=== PATIENT | female | born 1985 | race Caucasian/White ===

== ENCOUNTER 2016-04-02 22:24 | Emergency (ER) | payer MEDICAID ==
[~2016-04-02] VITALS: Ht 160 cm; Wt 62.0 kg
[~2016-04-02 22:24] MED LIST: ACET500C5 PO; BISM262O23 PO; CIPR500T4 PO; DOCU-144 PO; IBUP400T22 PO; NITR-58 PO; ONDA4TAB35 PO; ONDA8TAB14 PO; POLY17PO6 PO; TRAM50TA2 PO
[2016-04-02 22:27] VITALS: Ht 160 cm; Wt 62.0 kg
[2016-04-02] MEDS ORDERED: DIPH177. TP (23:56)
--- NOTE | 2016-04-03 00:09 | ERD ---
ER Documentation Chief Complaint Date/Time DATE: 04/03/16 TIME: 00:03 Chief Complaint headache on and off for past 2 weeks HPI 22-year-old female is complaining of itchy lesion on her anterior chest, and right upper leg. Patient stated that the chest lesion has been there for 1 week , and she noticed a lesion on her leg this evening. In addition, she also complaining of headache on and off of her past 2 weeks. Headache usually lasts about 1-2 hours, relieved with Tylenol. Denies headache at this time. Denies fever or chills. Denies blurry vision. Denies photophobia or phonophobia. Denies exposure to new foods or new cleaning products. Denies shortness of breath. ROS All systems reviewed and are negative except as per history of present illness. Medications Home Meds Active Scripts Diphenhydramin/Benzethon/Zinc (Calagel Gel) 177.44 Ml Gel..ml., 1 APPLIC TP Q2H Y for ITCHING, #1 BOT Prov:TERESSA RUIZ RN TESTING 04/02/16 Ibuprofen* (Motrin*) 400 Mg Tab, 400 MG PO Q6H Y for PAIN AND OR ELEVATED TEMP, #30 TAB Prov:ERIK FINN NP 01/18/16 Bismuth Subsalicylate* (Pepto-Bismol*) 262 Mg/15 Ml Oral.susp, 15 ML PO Q3H Y for DIARRHEA for 4 Days, ML Prov:ALVIN MENDOZA MD 10/27/15 Acetaminophen* (Tylophen*) 500 Mg Capsule, 1 CAP PO Q6H Y for PAIN AND OR ELEVATED TEMP, #14 CAP Prov:ALVIN MENDOZA MD 10/27/15 Ondansetron (Ondansetron Odt) 8 Mg Tab.rapdis, 8 MG PO Q6H Y for NAUSEA AND/OR VOMITING, #8 TAB Prov:ALVIN MENDOZA MD 10/27/15 Tramadol HCl (Tramadol HCl) 50 Mg Tablet, 50 MG PO Q4 Y for PAIN, #14 TAB Prov:ALVA GOLD PA-C 07/22/15 Ciprofloxacin Hcl* (Ciprofloxacin Hcl*) 500 Mg Tablet, 500 MG PO BID for 7 Days , TAB Prov:ERIK FINN NP 04/12/15 Docusate Sodium* (Colace*) 100 Mg Capsule, 100 MG PO TID, #30 CAP Prov:ERIK FINN BATSHEVA Holbrook RN TESTING 04/12/15 Polyethylene Glycol* (Miralax*) 17 Gm Powd.pack, 17 GM PO DAILY, #7 Prov:ERIK FINN BATSHEVA Holbrook NP 04/12/15 Ondansetron Hcl* (Zofran* ODT) 4 mg -ODT Tab.disper, 4 MG PO Q8 Y for NAUSEA AND /OR VOMITING, #30 TAB Prov:ERIK FINN BATSHEVA Holbrook RN TESTING 04/12/15 Nitrofurantoin Monohyd Macrocr* (Macrobid*) 100 Mg Capsr, 100 MG PO BID for 7 Days, CAP Prov:VIVEK DAVIS PA-C 02/03/15 Reported Medications [none] Unknown Strength No Conflict Check 04/12/15 [None] No Conflict Check 10/22/09 Allergies Allergies: Coded Allergies: No Known Drug Allergy (Verified Allergy, Mild, 07/22/15) PMhx/Soc Medical and Surgical Hx: pt denies Medical Hx History of Surgery: No Anesthesia Reaction: No Hx Neurological Disorder: No Hx Respiratory Disorders: No Hx Cardiac Disorders: No Hx Psychiatric Problems: No Hx Miscellaneous Medical Probl: No (DENIES MED AND SURG HX.) Hx Alcohol Use: No Hx Substance Use: No Hx Tobacco Use: No Physical Exam Vitals Vital Signs Date Time Temp Pulse Resp B/P Pulse Ox O2 Delivery O2 Flow Rate FiO2 04/02/16 22:27 98.5 100 18 165/100 100 Physical Exam General impression: Well-developed, well-nourished. Alert, oriented, in no acute distress Head: Normocephalic, atraumatic. Eyes: PERRL, EOM normal. Conjunctiva not injected. ENT: Nasal mucosa, oral mucosa and oropharynx are normal. Neck: Supple, nontender. Upper trapezius muscles tightness noted. No nuchal rigidity. Respiration: Normal respiratory effort. Lungs clear to auscultate bilaterally. No wheezes, rales or rhonchi. Cardiovascular: Regular rate and rhythm. No murmurs or extra heart sounds. Back: Normal to inspection. No midline spine tenderness. No CVA tenderness. Neuro: Mental status normal, speech normal. SIGNS AND DISPLAYS SALES REPRESENTATIVE II-XII intact. Normal sensation and strength in all 4 extremities. No focal weakness noted. Skin: Normal turgor. Except bites noted on patient's chest and left upper thigh. Psych: Normal mood and affect. Procedures/MDM Well-appearing 30-year-old female presented to ED with insect bites. Low suspicion for allergic reaction or anaphylaxis. Patient also complaining of on and off headache for last 2 weeks. Likely cause of headache is tension headache. Low suspicion for intracranial hemorrhage or mass. Low suspicion for stroke or cerebral aneurysm. Patient appears well, stable for discharge and outpatient management. Medical decision making shared with patient and family. Education provided to patient and family. Patient and family expressed understanding of the plan. Medications on discharge: Calagel. Follow-up: Primary care provider in 2-3 days or return to ED if worse. Departure Diagnosis: Primary Impression: Insect bite Encounter type: initial encounter Qualified Code: W57.XXXA - Insect bite, initial encounter Additional Impression: Headache Headache type: tension-type Headache chronicity pattern: acute headache Intractability: not intractable Qualified Code: G44.209 - Acute non intractable tension-type headache Condition: Good Patient Instructions: Self-Care for Headaches, Insect Bite Referrals: [facility] YOU HAVE RECEIVED A MEDICAL SCREENING EXAM AND THE RESULTS INDICATE THAT YOU DO NOT HAVE A CONDITION THAT REQUIRES URGENT TREATMENT IN THE EMERGENCY DEPARTMENT. FURTHER EVALUATION AND TREATMENT OF YOUR CONDITION CAN WAIT UNTIL YOU ARE SEEN IN YOUR DOCTORS OFFICE WITHIN THE NEXT 1-2 DAYS. IT IS YOUR RESPONSIBILITY TO MAKE AN APPOINTMENT FOR FOLOW-UP CARE. IF YOU HAVE A PRIMARY DOCTOR --you should call your primary doctor and schedule an appointment IF YOU DO NOT HAVE A PRIMARY DOCTOR YOU CAN CALL OUR PHYSICIAN REFERRAL HOTLINE AT IF YOU CAN NOT AFFORD TO SEE A PHYSICIAN YOU CAN CHOSE FROM THE FOLLOWING [facility] [address] [facility] [address] [facility] [facility] [address] [facility] [address] [facility] [address] [facility]. [facility] [address] Additional Instructions: Call your primary care doctor TOMORROW for an appointment during the next 2-3 days.See the doctor sooner or return here if your condition worsens before your appointment time. TERESSA RUIZ NP Apr 03, 2016 00:09
== END 2016-04-03 00:19 | disposition home or self-care (01) ==
LOC: FTE 22:24
DX: S20.369A Insect bite (nonvenomous) of unspecified front wall of thorax, initial encounter (principal); S70.362A Insect bite (nonvenomous), left thigh, initial encounter; G44.209 Tension-type headache, unspecified, not intractable; W57.XXXA Bitten or stung by nonvenomous insect and other nonvenomous arthropods, initial encounter; Y92.9 Unspecified place or not applicable
CPT/HCPCS: 99283

== ENCOUNTER 2016-08-16 23:37 | Emergency (ER) | payer MEDICAID ==
[~2016-08-16] VITALS: Ht 162.6 cm; Wt 60.5 kg
[~2016-08-16 23:37] MED LIST changes: +DIPH177. TP
[2016-08-16 23:48] VITALS: Ht 162.6 cm; Wt 60.5 kg
[2016-08-17] MEDS ORDERED: ONDANSETRON 4 MG INJ IV STA (00:12)
[2016-08-17] MEDS ORDERED: SOD CHLORIDE 0.9% 1,000 ML IV ONE (00:30)
[2016-08-17] MEDS ORDERED: FAMOTIDINE 20 MG INJ IV ONE (00:30)
[2016-08-17 00:45] LABS: URINE BLOOD (Dip) POC Trace-intact (NEGATIVE)
--- NOTE | 2016-08-17 01:42 | ERD ---
ER Documentation Chief Complaint Date/Time DATE: 08/17/16 TIME: 01:30 Chief Complaint diarrhea x 1 week, vomiting HPI This pleasant 31-year-old female presents to emergency department today with complaint of nausea, vomiting, diarrhea 7 days. Patient reports low abdominal cramping, denies fever or chills. Patient reports possibility of eating contaminated food . Reports has similar symptoms, denies any recent travel, denies blood in stool or vomit. Patient reports anorexia but is drinking water and Pedialyte. Patient reports last vomited episode yesterday but feels nauseated now.. Reports copious watery diarrhea with today has not been able to leave the bathroom for most of the day. Patient denies chest pain, shortness of breath, history of pancreatitis, last menstrual period was 7 days ago reported normal. Patient denies dysuria, or back pain., Denies chest pain, shortness of breath, dizziness, or palpitation ROS All systems reviewed and are negative except as per history of present illness. Medications Home Meds Active Scripts Ciprofloxacin Hcl* (Ciprofloxacin Hcl*) 500 Mg Tablet, 500 MG PO BID for 7 Days , TAB Prov:JAS CHAVEZ 08/17/16 Diphenhydramin/Benzethon/Zinc (Calagel Gel) 177.44 Ml Gel..ml., 1 APPLIC TP Q2H Y for ITCHING, #1 BOT Prov:TERESSA RUIZ SHAKER OUT 04/02/16 Ibuprofen* (Motrin*) 400 Mg Tab, 400 MG PO Q6H Y for PAIN AND OR ELEVATED TEMP, #30 TAB Prov:ERIK FINN NP 01/18/16 Bismuth Subsalicylate* (Pepto-Bismol*) 262 Mg/15 Ml Oral.susp, 15 ML PO Q3H Y for DIARRHEA for 4 Days, ML Prov:ALVIN MENDOZA MD 10/27/15 Acetaminophen* (Tylophen*) 500 Mg Capsule, 1 CAP PO Q6H Y for PAIN AND OR ELEVATED TEMP, #14 CAP Prov:ALVIN MENDOZA MD 10/27/15 Ondansetron (Ondansetron Odt) 8 Mg Tab.rapdis, 8 MG PO Q6H Y for NAUSEA AND/OR VOMITING, #8 TAB Prov:ALVIN MENDOZA MD 10/27/15 Tramadol HCl (Tramadol HCl) 50 Mg Tablet, 50 MG PO Q4 Y for PAIN, #14 TAB Prov:ALVA GOLD PA-C 07/22/15 Ciprofloxacin Hcl* (Ciprofloxacin Hcl*) 500 Mg Tablet, 500 MG PO BID for 7 Days , TAB Prov:ERIK FINN NP 04/12/15 Docusate Sodium* (Colace*) 100 Mg Capsule, 100 MG PO TID, #30 CAP Prov:ERIK FINN SHAKER OUT 04/12/15 Polyethylene Glycol* (Miralax*) 17 Gm Powd.pack, 17 GM PO DAILY, #7 Prov:ERIK FINN NP 04/12/15 Ondansetron Hcl* (Zofran* ODT) 4 mg -ODT Tab.disper, 4 MG PO Q8 Y for NAUSEA AND /OR VOMITING, #30 TAB Prov:ERIK FINN NP 04/12/15 Nitrofurantoin Monohyd Macrocr* (Macrobid*) 100 Mg Capsr, 100 MG PO BID for 7 Days, CAP Prov:VIVEK DAVIS PA-C 02/03/15 Reported Medications [none] Unknown Strength No Conflict Check 04/12/15 [None] No Conflict Check 10/22/09 Allergies Allergies: Coded Allergies: No Known Drug Allergy (Verified Allergy, Mild, 08/17/16) PMhx/Soc History of Surgery: No Anesthesia Reaction: No Hx Neurological Disorder: No Hx Respiratory Disorders: No Hx Cardiac Disorders: No Hx Psychiatric Problems: No Hx Miscellaneous Medical Probl: No (DENIES MED AND SURG HX.) Hx Alcohol Use: No Hx Substance Use: No Hx Tobacco Use: No Physical Exam Vitals Vital Signs Date Time Temp Pulse Resp B/P Pulse Ox O2 Delivery O2 Flow Rate FiO2 08/16/16 23:48 98.2 90 20 136/69 98 Vitals stable, triage notes reviewed Physical Exam Const: No acute distress, well-appearing Head: Atraumatic Eyes: Normal Conjunctiva, PERRLA, EOMI ENT: Normal External Ears, Nose and Mouth mucous membranes. Neck: Full range of motion..~ No meningismus. Resp: Chest rise and fall symmetrically, no respiratory distress Abd: Abdomen soft, generalized tenderness, no CVA tenderness, no rebound tenderness Skin: Back: Ext: Neur: Awake and alert Psych: Normal Mood and Affect Results 24 hrs Laboratory Tests Test 08/17/16 00:48 Bedside Urine pH (LAB) 7.0 Bedside Urine Protein (LAB) Negative Bedside Urine Glucose (UA) Negative Bedside Urine Ketones (LAB) Negative Bedside Urine Blood Trace-intact Bedside Urine Nitrite (LAB) Negative Bedside Urine Leukocyte Esterase (L 1+ Current Medications Medications (Trade) Dose Ordered Sig/Duc Route PRN Reason Start Time Stop Time Status Last Admin Dose Admin Sodium Chloride (NS) 1,000 ml @ 1,000 mls/hr Q1H ONCE IV 08/17/16 00:30 08/17/16 01:29 DC 08/17/16 00:39 Famotidine (Pepcid Iv) 20 mg ONCE ONCE IV 08/17/16 00:30 08/17/16 00:31 DC 08/17/16 00:39 Ondansetron HCl (Zofran Inj) 4 mg ONCE STAT IV 08/17/16 00:12 08/17/16 00:16 DC 08/17/16 00:39 Procedures/MDM This pleasant 31-year-old female presents to emergency department today with 1 week history of nausea, vomiting, diarrhea. Patient reports low abdominal pain , cramping, denies back pain. Patient denies any recent travel but reports possible contaminated food, reports has been sick with similar symptoms. Patient is afebrile, has taken [id number] Imodium and Pepto-Bismol with little relief of symptoms. Infectious diarrhea, cholecystitis, pancreatitis, appendicitis, unlikely. Patient treated with 1 L of normal saline, Zofran, and Pepcid with effective improvement of symptoms. Urinalysis positive for leukocytosis and microscopic hematuria, likely secondary to diarrhea. Patient will be treated with Cipro 500 mg 1 tab p.o. twice daily 7 days. Continue over -the-counter Imodium as directed. Return to emergency department for worsening of symptoms. Increase fluids, increase rest. I feel the patient is stable for discharge at this time with outpatient management by primary physician. I have discussed results, examination findings, the treatment plan with the patient and family present prior to discharge. Indications for emergent reevaluation, side effects of medication were also discussed. All questions were answered. Patient verbalizes understanding and agrees with plan of care. Departure Diagnosis: Primary Impression: Diarrhea Diarrhea type: unspecified type Qualified Code: R19.7 - Diarrhea, unspecified type Additional Impression: UTI (urinary tract infection) Urinary tract infection type: site unspecified Hematuria presence: with hematuria Qualified Code: N39.0 - Urinary tract infection with hematuria, site unspecified Patient Instructions: Understanding Urinary Tract Infections (UTIs) [facility] Additional Instructions: Thank you for for coming to [facility] for your care today. Please ask your nurse or provider if you have questions about your care today and do not leave until all your questions have been answered. Please use any medications given as directed and follow-up with your doctor (or the doctor you were referred to) in the next 2-3 days. If you do not have a primary care doctor [place] [facility] [place] You may also use motrin and tylenol as needed for fever and/or pain unless instructed otherwise by your provider or nurse. Indications for more urgent follow-up have been discussed, but you may return to the Emergency Department at ANY time for any worrisome or worsening symptoms. If you have abdominal pain, please know that no test or exam you received is perfect and you should follow up within 8 hours for continued pain. If you had any imaging studies today, such as an X-Ray or CT Scan, these studies will be reviewed later by a radiologist. You will be called if there are important findings that were not identified today, so make sure the contact information you provided at registration is correct. If you received any narcotic pain control medicine today, such as Vicodin, Morphine or Dilaudid, your coordination and judgment may be affected for a number of hours. Please do not drive or operate heavy machinery, and you may want someone to assist you at home. If you were given a prescription for narcotic medication, be aware that it is very addictive- use sparingly and only if necessary. AJS CHAVEZ Aug 17, 2016 01:41
[2016-08-17] MEDS ORDERED: CIPR500T4 PO (01:43)
[2016-08-17 02:03] VITALS: BP 117/71; PULSE 78; RESP 18
== END 2016-08-17 02:04 | disposition home or self-care (01) ==
LOC: FTE 23:37
DX: R19.7 Diarrhea, unspecified (principal); N39.0 Urinary tract infection, site not specified; R11.2 Nausea with vomiting, unspecified
CPT/HCPCS: 81003; J2405; J7030; Z7610; 96361; 96374; 96375

== ENCOUNTER 2017-08-25 17:40 | Emergency (ER) | END 2017-08-25 21:15 | disposition home or self-care (01) ==

== ENCOUNTER 2018-05-02 07:35 | Inpatient (IN) | payer MEDICAID ==
[~2018-05-02] VITALS: Ht 160 cm; Wt 86.4 kg
[~2018-05-02 07:35] MED LIST changes: +IBUP-1561 PO; -IBUP400T22 PO
[2018-05-02 07:49] VITALS: BP 124/85; PULSE 115; RESP 17; Ht 160 cm; Wt 86.4 kg
[2018-05-02] MEDS: LACTATED RINGER'S 1,000 ML IV SCH ×3 (08:22→23:15)
[2018-05-02] MEDS ORDERED: LIDOCAINE 1% (MPF) 30 ML INJ INJ PRN (08:30)
[2018-05-02] MEDS ORDERED: CARBOPROST 250 MCG INJ IM PRN (08:30)
[2018-05-02] MEDS ORDERED: OXYTOCIN 30 UNITS/LR 500 ML IV SCH ×2 (08:30)
[2018-05-02] MEDS ORDERED: MISOPROSTOL 200 MCG TAB PR PRN (08:30)
[2018-05-02] MEDS ORDERED: METHYLERGONOVINE 0.2 MG INJ IM PRN (08:30)
[2018-05-02] MEDS ORDERED: OXYTOCIN 30 UNITS/LR 500 ML IV PRN (08:30)
[2018-05-02] MEDS ORDERED: BUTORPHANOL 2 MG INJ IV PRN (08:30)
[2018-05-02] MEDS: MISOPROSTOL 50 MCG CAPSULE PO SCH ×3 (10:00→21:56)
--- NOTE | 2018-05-02 13:11 | HP ---
Date/Time of Note Date/Time of Note DATE: 05/02/18 TIME: 13:10 OB - History Hx of Present : 1 Para: 0 Care: Good Care Ultrasounds: Normal mid trimester US Obstetrical Complications: None Medical Complications: None Past Family/Social History * Past Medical, Surgical, Family and Obstetric Histories reviewed from chart. OB Admission Exam Vital Signs Vital Signs Vital Signs Date Temp Pulse Resp B/P (MAP) Pulse Ox O2 O2 Flow FiO2 Time Delivery Rate 05/02/18 97.7 115 17 124/85 07:49 (98) Physical Exam HEENT: WNL Heart: Rhythm Normal Lungs: Clear, Equal Abdomen: WNL Extremities: Normal Reflexes: Normal Cervical Dilatation: Fingertip Effacement: 25% Station: -2 Membranes: Intact Heart Rate: 130's Accelerations: Accelerations Present Decelerations: No Decelerations Varibility: Moderate Contractions on Admission: None Last 72 hours Lab Results CBC & BMP 05/02/18 08:22 OB Assessment/Plan Reason for admission: active labor, induction of labor Plan: Induction DUANE JANG MD May 02, 2018 13:11
[2018-05-03] MEDS: LACTATED RINGER'S 1,000 ML IV SCH ×3 (00:51→19:00)
--- NOTE | 2018-05-03 01:17 | PREAC ---
Date/Time of Note Date/Time of Note DATE: 05/03/18 TIME: : Anesthesia Eval and Record Evaluation Time Pre-Procedure Interview DATE: 05/03/18 TIME: :16 Age 32 Sex female NPO: 8 hrs Preoperative diagnosis labor pain Planned procedure labor epidural Past Medical History Past Medical History: None Surgery & Anesthesia Issues No known issue Meds Anticoagulation: No Beta Jose within 24 hr: No Reason Beta Jose not given: Pt. not on B-Jose Active Scripts Ciprofloxacin Hcl* (Ciprofloxacin Hcl*) 500 Mg Tablet, 500 MG PO BID for 7 Days, TAB Prov:SCOTTJAS 08/17/16 Diphenhydramin/Benzethon/Zinc (Calagel Gel) 177.44 Ml Gel..ml., 1 APPLIC TP Q2H PRN for ITCHING, #1 BOT Prov:TERESSA RUIZ [place] PILOT 04/02/16 Ibuprofen* (Motrin*) 400 Mg Tab, 400 MG PO Q6H PRN for PAIN AND OR ELEVATED TEMP, #30 TAB Prov:ERIK FINN NP 01/18/16 Bismuth Subsalicylate* (Pepto-Bismol*) 262 Mg/15 Ml Oral.susp, 15 ML PO Q3H PRN for DIARRHEA for 4 Days, ML Prov:ALVIN MENDOZA MD 10/27/15 Acetaminophen* (Tylophen*) 500 Mg Capsule, 1 CAP PO Q6H PRN for PAIN AND OR ELEVATED TEMP, #14 CAP Prov:ALVIN MENDOZA MD 10/27/15 Ondansetron (Ondansetron Odt) 8 Mg Tab.rapdis, 8 MG PO Q6H PRN for NAUSEA AND/OR VOMITING, #8 TAB Prov:ALVIN MENDOZA MD 10/27/15 Tramadol HCl (Tramadol HCl) 50 Mg Tablet, 50 MG PO Q4 PRN for PAIN, #14 TAB Prov:ALVA GOLD PA-C 07/22/15 Ciprofloxacin Hcl* (Ciprofloxacin Hcl*) 500 Mg Tablet, 500 MG PO BID for 7 Days, TAB Prov:ERIK FINN NP 04/12/15 Docusate Sodium* (Colace*) 100 Mg Capsule, 100 MG PO TID, #30 CAP Prov:ERIK FINN NP 04/12/15 Polyethylene Glycol* (Miralax*) 17 Gm Powd.pack, 17 GM PO DAILY, #7 Prov:ERIK FINN NP 04/12/15 Ondansetron Hcl* (Zofran* ODT) 4 mg -ODT Tab.disper, 4 MG PO Q8 PRN for NAUSEA AND/OR VOMITING, #30 TAB Prov:ERIK FINN NP 04/12/15 Nitrofurantoin Monohyd Macrocr* (Macrobid*) 100 Mg Capsr, 100 MG PO BID for 7 Days, CAP Prov:VIVEK DAVIS PA-C 02/03/15 Reported Medications [none] Unknown Strength No Conflict Check 04/12/15 [None] No Conflict Check 10/22/09 Current Medications Lactated Ringer's 1,000 ml @ 125 mls/hr Q8H IV Last administered on 05/03/18at 00:51; Admin Dose 125 MLS/HR; Start 05/02/18 at 08:04 Butorphanol Tartrate (Stadol) 2 mg Q2H PRN IV .PAIN; Start 05/02/18 at 08:30 Lidocaine (Xylocaine 1% (Mpf)) 30 ml ONCE PRN INJ .EPISIOTOMY; Start 05/02/18 at 08:30 Oxytocin/Lactated Ringer's 500 ml @ 500 mls/hr ONCE POST IV ; Start 05/02/18 at 08:30 Oxytocin/Lactated Ringer's 500 ml @ 125 mls/hr POST IV ; Start 05/02/18 at 08:30 Oxytocin/Lactated Ringer's 500 ml @ 0 mls/hr ONCE PRN IV .VAGINAL BLEEDING; Start 05/02/18 at 08:30 Methylergonovine Maleate (Methergine) 0.2 mg ONCE PRN IM .VAGINAL BLEEDING; Start 05/02/18 at 08:30 Carboprost Tromethamine (Hemabate) 250 mcg ONCE PRN IM .VAGINAL BLEEDING; Start 05/02/18 at 08:30 Misoprostol (Cytotec) 1,000 mcg ONCE PRN AR .VAGINAL BLEEDING; Start 05/02/18 at 08:30 Misoprostol (Cytotec 50 Mcg Capsule) 50 mcg Q4 PO Last administered on 05/02/18at 21:56; Admin Dose 50 MCG; Start 05/02/18 at 10:00 Meds reviewed: Yes Allergies Coded Allergies: No Known Drug Allergy (Verified Allergy, Mild, 08/17/16) Allergies Reviewed: Yes Labs/Studies Labs Reviewed: Reviewed by anesthesiologist Result Diagram: 05/02/1822 Laboratory Tests 05/02/18 08:22 Blood Bank Test 05/02/18 08:22 Antibody Screen NEGATIVE Blood Type B POSITIVE Rh Immune Globulin Candidate NO test: Positive Pre-procedure Exam Last vitals Vital Signs Date Temp Pulse Resp B/P (MAP) Pulse Ox O2 O2 Flow FiO2 Time Delivery Rate 05/02/18 97.7 115 17 124/85 07:49 (98) Airway: Adequate mouth opening, Adequate thyromental dist Mallampati: Mallampati III Teeth: Normal Lung: Normal Heart: Normal ASA Physical Status ASA physical status: 2 Emergency: None Planned Anesthetic Neuraxial: Epidural Planned Pain Management Epidural, Parenteral pain med Pre-operative Attestations Prior to commencing anesthesia and surgery, the patient was re-evaluated, there was verification of: *The patient's identity *The results of appropriate recent lab work and preoperative vital signs *The above evaluation not changing prior to induction *Anesthetic plan, risk benefits, alternative and complications discussed with patient/family; questions answered; patient/family understands, accepts and wishes to proceed. MARCO A MORRELL MD May 03, 2018 01:17
[2018-05-03] MEDS ORDERED: KETOROLAC 30 MG INJ IV PRN (01:30)
[2018-05-03] MEDS ORDERED: ZOLPIDEM 5 MG TAB PO PRN ×2 (01:30→08:30)
[2018-05-03] MEDS ORDERED: FENTAnyl 2MCG/ML-ROPIV 0.2% 100 ML BAG EPI SCH (01:30)
[2018-05-03] MEDS ORDERED: ONDANSETRON 4 MG INJ IV PRN (01:30)
[2018-05-03] MEDS ORDERED: DIPHENHYDRAMINE 50 MG INJ IV PRN (01:30)
[2018-05-03] MEDS ORDERED: NALOXONE (0.4 MG/ML) INJ IV PRN (01:30)
[2018-05-03] MEDS ORDERED: HYDROmorphONE 0.5 MG/0.5 ML SYG IV PRN ×2 (01:30)
--- NOTE | 2018-05-03 01:56 | PAC ---
Date/Time of Note Date/Time of Note DATE: 05/03/18 TIME: 01:55 Post-Anesthesia Notes Post-Anesthesia Note Last documented vital signs Vital Signs Date Temp Pulse Resp B/P (MAP) Pulse Ox O2 O2 Flow FiO2 Time Delivery Rate 05/02/18 97.7 115 17 124/85 07:49 (98) Activity: WNL Respiratory function: WNL Cardiovascular function: WNL Mental status: Baseline Pain reasonably controlled: Yes Hydration appropriate: Yes Nausea/Vomiting absent: Yes MARCO A MORRELL MD May 03, 2018 01:56
--- NOTE | 2018-05-03 06:32 | LDN ---
Date/Time of Note Date/Time of Note DATE: 05/03/18 TIME: 05:56 Delivery Summary of normal female with shoulder cord Weeks of Gestation 40w2d Placenta Delivered: Spontaneously Meconium: Thick Episiotomy: No Perineal laceration: 1 Laceration repair: 0000ch gut Rt periurethral also used 0000ch gut Anesthesia type: Epidural Estimated blood loss: 150 Sponge & Needle done & correct: Yes All needle counts correct: Yes Any foreign bodies felt in the: No Infant Delivery Information Sex Infant Sex: female Apgars 1 Minute: 7 5 Minute: 8 Suctioning Nose & mouth suctioned at valentin: Yes Delee suction performed: Yes Umbilical Cord Umbilical cord with: 3 Vessels Cord Blood was obtained: Yes Mother & Baby Disposition Disposition Mom & Baby to Maternity; Good: No Mom transferred to: Other Baby to NICU: Yes DINESH CARPENTER MD May 03, 2018 06:09
[2018-05-03] MEDS ORDERED: OXYTOCIN 30 UNITS/LR 500 ML IV PRN (08:30)
[2018-05-03] MEDS ORDERED: BENZOCAINE 20% 56 ML SPRAY TOP PRN (08:30)
[2018-05-03] MEDS ORDERED: LANOLIN HPA 1 PKT TOP PRN (08:30)
[2018-05-03] MEDS ORDERED: MISOPROSTOL 200 MCG TAB PR PRN (08:30)
[2018-05-03] MEDS ORDERED: METHYLERGONOVINE 0.2 MG INJ IM PRN (08:30)
[2018-05-03] MEDS ORDERED: CARBOPROST 250 MCG INJ IM PRN (08:30)
[2018-05-03] MEDS ORDERED: WITCH HAZEL/GLYCERIN PAD PR PRN (08:30)
[2018-05-03] MEDS ORDERED: OXYCODONE/ASPIRIN (4.88/325) TAB PO PRN ×2 (08:30)
[2018-05-03 08:37] VITALS: BP 121/73; PULSE 99; RESP 18
[2018-05-03 09:45] VITALS: BP 122/79; PULSE 96; RESP 16
[2018-05-03] MEDS: SENNA/DOCUSATE NA (8.6MG/50MG) TAB PO SCH ×2 (10:24→20:57)
[2018-05-03] MEDS: IBUPROFEN 600 MG TAB PO SCH ×2 (12:00→18:00)
[2018-05-03 16:00] VITALS: BP 119/74; PULSE 92; RESP 17
[2018-05-03 19:40] VITALS: BP 121/82; RESP 20
[2018-05-04] VITALS: BP 113/76; PULSE 73; RESP 19
[2018-05-04] MEDS: LACTATED RINGER'S 1,000 ML IV SCH ×3 (02:30→18:30)
[2018-05-04 04:00] VITALS: BP 113/72; PULSE 87; RESP 18
[2018-05-04] MEDS: IBUPROFEN 600 MG TAB PO SCH ×4 (06:00→18:00)
[2018-05-04] MEDS: SENNA/DOCUSATE NA (8.6MG/50MG) TAB PO SCH ×2 (08:38→21:19)
--- NOTE | 2018-05-04 10:33 | DS ---
Date/Time of Note Date/Time of Note DATE: 05/04/18 TIME: 10:33 Discharge Summary Admission/Discharge Info Admit Date/Time May 02, 2018 at 07:35 Discharge Date/Time Patient Condition: Stable Hospital Course unremarkable Home Meds Active Scripts Ciprofloxacin Hcl* (Ciprofloxacin Hcl*) 500 Mg Tablet, 500 MG PO BID for 7 Days, TAB Prov:SCOTTJAS 08/17/16 Diphenhydramin/Benzethon/Zinc (Calagel Gel) 177.44 Ml Gel..ml., 1 APPLIC TP Q2H PRN for ITCHING, #1 BOT Prov:TERESSA RUIZ NP 04/02/16 Ibuprofen* (Motrin*) 400 Mg Tab, 400 MG PO Q6H PRN for PAIN AND OR ELEVATED TEMP, #30 TAB Prov:ERIK FINN NP 01/18/16 Bismuth Subsalicylate* (Pepto-Bismol*) 262 Mg/15 Ml Oral.susp, 15 ML PO Q3H PRN for DIARRHEA for 4 Days, ML Prov:ALVIN MENDOZA MD 10/27/15 Acetaminophen* (Tylophen*) 500 Mg Capsule, 1 CAP PO Q6H PRN for PAIN AND OR ELEVATED TEMP, #14 CAP Prov:ALVIN MENDOZA MD 10/27/15 Ondansetron (Ondansetron Odt) 8 Mg Tab.rapdis, 8 MG PO Q6H PRN for NAUSEA AND/OR VOMITING, #8 TAB Prov:ALVIN MENDOZA MD 10/27/15 Tramadol HCl (Tramadol HCl) 50 Mg Tablet, 50 MG PO Q4 PRN for PAIN, #14 TAB Prov:ALVA GOLD PA-C 07/22/15 Ciprofloxacin Hcl* (Ciprofloxacin Hcl*) 500 Mg Tablet, 500 MG PO BID for 7 Days, TAB Prov:ERIK FINN NP 04/12/15 Docusate Sodium* (Colace*) 100 Mg Capsule, 100 MG PO TID, #30 CAP Prov:ERIK FINN NP 04/12/15 Polyethylene Glycol* (Miralax*) 17 Gm Powd.pack, 17 GM PO DAILY, #7 Prov:ERIK FINN NP 04/12/15 Ondansetron Hcl* (Zofran* ODT) 4 mg -ODT Tab.disper, 4 MG PO Q8 PRN for NAUSEA AND/OR VOMITING, #30 TAB Prov:AAKASHERIK Holbrook NP 04/12/15 Nitrofurantoin Monohyd Macrocr* (Macrobid*) 100 Mg Capsr, 100 MG PO BID for 7 Days, CAP Prov:VIVEK DAVIS PA-C 02/03/15 Reported Medications [none] Unknown Strength No Conflict Check 04/12/15 [None] No Conflict Check 10/22/09 Primary Care Provider Care Physician No Primary Pending Labs Laboratory Tests Test 05/04/18 06:28 05/04/18 06:54 White Blood Count 9.9 10^3/ul (4.8-10.8) Red Blood Count 3.95 10^6/ul (4.20-5.40) Hemoglobin 11.6 g/dl (12.0-16.0) Hematocrit 34.7 % (37.0-47.0) Mean Corpuscular Volume 87.8 fl (82.0-101.0) Mean Corpuscular Hemoglobin 29.4 pg (29.0-33.0) Mean Corpuscular 33.4 g/dl (32.0-37.0) Hemoglobin Concent Red Cell Distribution Width 13.4 % (11.5-14.5) Platelet Count 155 10^3/UL (140-415) Mean Platelet Volume 10.4 fl (7.4-10.4) Immature Granulocytes % 0.600 % (0.001-0.429) Neutrophils % 64.5 % (39.0-77.0) Lymphocytes % 24.5 % (15.0-51.0) Monocytes % 9.0 % (0.0-11.0) Eosinophils % 1.3 % (0.0-7.0) Basophils % 0.1 % (0.0-2.0) Nucleated Red Blood Cells % 0.0 /100WBC (0.0-0.0) Immature Granulocytes # 0.060 10^3/ul (0.0-0.031) Neutrophils # 6.4 10^3/ul (1.6-7.5) Lymphocytes # 2.4 10^3/ul (0.8-2.9) Monocytes # 0.9 10^3/ul (0.3-0.9) Eosinophils # 0.1 10^3/ul (0.0-0.5) Basophils # 0.0 10^3/ul (0.0-0.1) Nucleated Red Blood Cells # 0.0 10^3/ul (0.0-0.0) Lab Scanned Report REFERENCE LAB [id number] DUANE JANG MD May 04, 2018 10:33
--- NOTE | 2018-05-04 13:33 | QN ---
Documentation Comment day #1 Patient stable and afebrile Vital signs stable VS - Last 72 Hours, by Label Date Temp Pulse Resp B/P (MAP) Pulse Ox O2 O2 Flow FiO2 Time Delivery Rate 05/04/18 98.2 87 18 113/72 Room Air 04:00 (86) 05/04/18 98.4 73 19 113/76 Room Air 00:00 (88) 05/03/18 98.0 20 121/82 Room Air 19:40 (95) 05/03/18 98.1 92 17 119/74 Room Air 16:00 (89) 05/03/18 98.1 96 16 122/79 Room Air 09:45 (93) 05/03/18 98.8 99 18 121/73 Room Air 08:37 (89) 05/02/18 97.7 115 17 124/85 07:49 (98) Hematology - 72 Hrs Test 05/02/18 08:22 05/04/18 06:28 Hematocrit 37.6 % (37.0-47.0) 34.7 % (37.0-47.0) L Hemoglobin 12.8 g/dl (12.0-16.0) 11.6 g/dl (12.0-16.0) L Mean Corpuscular 30.1 pg (29.0-33.0) 29.4 pg (29.0-33.0) Hemoglobin Mean Corpuscular 34.0 g/dl (32.0-37.0) 33.4 g/dl (32.0-37.0) Hemoglobin Concent Mean Corpuscular Volume 88.5 fl (82.0-101.0) 87.8 fl (82.0-101.0) Mean Platelet Volume 10.9 fl (7.4-10.4) H 10.4 fl (7.4-10.4) Platelet Count 170 10^3/UL (140-415) # 155 10^3/UL (140-415) Red Blood Count 4.25 10^6/ul (4.20-5.40) 3.95 10^6/ul (4.20-5.40) L Red Cell Distribution 13.3 % (11.5-14.5) 13.4 % (11.5-14.5) Width White Blood Count 9.7 10^3/ul (4.8-10.8) 9.9 10^3/ul (4.8-10.8) Abdomen soft, fundus firm Perineum intact Extremities nontender Assessment and plan Patient stable and doing well Continue with routine care TIN MCKENZIE MD May 04, 2018 13:33
[2018-05-04 16:25] VITALS: BP 115/80; PULSE 99; RESP 17
[2018-05-04 20:00] VITALS: BP 118/87; PULSE 87; RESP 19
[2018-05-05] MEDS: LACTATED RINGER'S 1,000 ML IV SCH ×2 (02:30→10:30)
[2018-05-05 04:01] VITALS: BP 114/74; PULSE 83; RESP 18
[2018-05-05] MEDS: IBUPROFEN 600 MG TAB PO SCH ×3 (05:37→11:37)
[2018-05-05 08:00] VITALS: BP 112/75; PULSE 92; RESP 18
[2018-05-05] MEDS ORDERED: DIPHTH/TET/ACEL PERTUSS (ADULT) 0.5 ML VIAL IM* ONE (09:00)
[2018-05-05] MEDS: SENNA/DOCUSATE NA (8.6MG/50MG) TAB PO SCH (09:13)
--- NOTE | 2018-05-05 11:45 | QN ---
Documentation Comment PPD#2 is stable No VB +BM +voids VS stable Gen NA Abd soft NT ND Genitalia No blood at perineum __>discharge plan --->Ambulation DEREJE MOORE M.D. May 05, 2018 11:45
[2018-05-05 15:58] VITALS: BP 121/81; PULSE 82; RESP 20
== END 2018-05-05 16:33 | disposition home or self-care (01) | DRG 807 ==
LOC: L-D 07:35 → PP1 05-03 08:11
PROVIDERS: ADMIT Obstetrics & Gynecology; ATTEND Obstetrics & Gynecology
PROC: 10E0XZZ Delivery of Products of Conception, External Approach (ICD-10-PCS; principal; 2018-05-03)
PROC: 0HQ9XZZ Repair Perineum Skin, External Approach (ICD-10-PCS; 2018-05-03)
DX: O48.0 Post-term pregnancy (principal); Z37.0 Single live birth; Z3A.40 40 weeks gestation of pregnancy; O70.0 First degree perineal laceration during delivery
CPT/HCPCS: 62319; 76815; 85025; 85610; 85730; 86592; 86850; 86900; 86901; 87340; 90686; 90715; 99464; J2590; J3010; J7120